=== PATIENT | male | born 1960 | race Caucasian/White ===

== ENCOUNTER 2017-03-29 06:30 | Inpatient (IN) | payer OTHER ==
[~2017-03-29] VITALS: Ht 175.3 cm; Wt 85.6 kg
[~2017-03-29 06:30] MED LIST: AUGMENTIN875 MG PO; MOTRIN600 MG PO; NON
[2017-03-29 07:10] LABS: BASOPHIL COUNT 0.1 K/uL (0-0.1); EOSINOPHIL (%) 2.7 % (0-5); EOSINOPHIL COUNT 0.3 K/uL (0-0.3); HEMATOCRIT 44.6 % (38.0-50.0); IMMATURE GRANULOCYTE (%) 0.3 % (0.0-0.7); INSTRUMENT ABS NEUTROPHIL CT 6.7 K/uL; LYMPHOCYTE COUNT 1.9 K/uL (1.0-2.8); MCHC 34.1 G/DL (30.0-36.0); MEAN PLAT.VOLUME 9.1 uM^3 (9.0-12.4); MONOCYTE (%) 6.5 % (3-12); MONOCYTE COUNT 0.6 K/uL (0-0.8); NEUTROPHIL (%) 70.4 % (45-76); NEUTROPHIL COUNT 6.7 K/uL (1.8-6.4); PLATELET COUNT 216 K/uL (156-360); RBC DIS.WIDTH-CV 12.8 % (11.8-14.6); RBC DIS.WIDTH-SD 45.9 % (39-53); WHITE BLOOD COUNT 9.5 K/uL (4.1-10.2)
[2017-03-29 07:18] LABS: PTT 32.5 SEC (25-37)
[2017-03-29 07:36] LABS: ANION GAP 7 MEQ/L (2-14); CHLORIDE 106 MEQ/L (99-109); POTASSIUM 3.9 MEQ/L (3.7-5.4); SAMPLE HEMOLYSIS CHECK 0; SAMPLE ICTERIC CHECK 0; SAMPLE LIPEMIA CHECK 0; SODIUM 141 MEQ/L (136-147)
[2017-03-29 07:41] LABS: GFR ESTIMATE (CALCULATED) > 59 mL/min/; GLUCOSE 122 mg/dL (70-99); UREA NITROGEN (BUN) 10 mg/dL (9-23)
[2017-03-29 07:45] LABS: TROP-I INTERPRETATION NEGATIVE; TROPONIN-I 0.01 ng/mL (0.0-0.30)
[2017-03-29 11:00] VITALS: BP 140/99
[2017-03-29 15:09] LABS: TROP-I INTERPRETATION NEGATIVE; TROPONIN-I 0.02 ng/mL (0.0-0.30)
[2017-03-29 15:17] VITALS: BP 125/80
[2017-03-29 20:38] VITALS: BP 110/73
[2017-03-29 21:27] LABS: TROP-I INTERPRETATION NEGATIVE; TROPONIN-I 0.03 ng/mL (0.0-0.30)
[2017-03-30] VITALS (7 sets, daily range): BP systolic 114–136; BP diastolic 68–83
[2017-03-30 05:14] LABS: HEMATOCRIT 40.6 % (38.0-50.0); MCH 33.2 PG (29.0-34.0); MCV 97.6 FL (86-99); MEAN PLAT.VOLUME 9.2 uM^3 (9.0-12.4); PLATELET COUNT 182 K/uL (156-360); RBC DIS.WIDTH-SD 46.1 % (39-53); RED BLOOD COUNT 4.16 M/uL (4.00-5.50); WHITE BLOOD COUNT 7.6 K/uL (4.1-10.2)
[2017-03-30 05:30] LABS: TROP-I INTERPRETATION NEGATIVE; TROPONIN-I 0.03 ng/mL (0.0-0.30)
[2017-03-30 05:44] LABS: ALKALINE PHOSPHATASE 58 IU/L (3-129); ANION GAP 8 MEQ/L (2-14); CHLORIDE 104 MEQ/L (99-109); GFR ESTIMATE (CALCULATED) > 59 mL/min/; POTASSIUM 3.3 MEQ/L (3.7-5.4); SAMPLE HEMOLYSIS CHECK 0; SAMPLE ICTERIC CHECK 0; SAMPLE LIPEMIA CHECK 0; SODIUM 139 MEQ/L (136-147); TOTAL BILIRUBIN 1.6 MG/DL (0.0-1.0); UREA NITROGEN (BUN) 11 mg/dL (9-23)
[2017-03-30 05:45] LABS: GLUCOSE 91 mg/dL (70-99)
[2017-03-30 11:19] LABS: TROP-I INTERPRETATION NEGATIVE; TROPONIN-I < 0.01 ng/mL (0.0-0.30)
[2017-03-30 11:31] LABS: CREATINE KINASE 44 IU/L (1-294); TOTAL CK 44 IU/L (1-294)
[2017-03-30 12:48] LABS: CK-MB 0.4 ng/mL (0.0-4.9)
[2017-03-31 03:51] VITALS: BP 123/78
[2017-03-31 08:28] VITALS: BP 120/73
[2017-03-31 11:40] VITALS: BP 121/75
== END 2017-03-31 13:25 | disposition left against medical advice (07) | DRG 316 ==
LOC: EME 06:30 → EDOF 09:30 → 4EAST 09:30 → ENRESERV 09:32 → 4EAST 10:55
PROVIDERS: Emergency Medicine; Internal Medicine
DX: I30.9 Acute pericarditis, unspecified (principal); I50.9 Heart failure, unspecified; I11.0 Hypertensive heart disease with heart failure; R94.31 Abnormal electrocardiogram [ECG] [EKG]; F17.210 Nicotine dependence, cigarettes, uncomplicated; M25.519 Pain in unspecified shoulder; R07.89 Other chest pain
CPT/HCPCS: 71010; 71020; 71275; 80048; 80053; 82550 91; 82553; 83735; 83880; 84484; 85025; 85027; 85610; 85730; 93005; 93306; 99281; 99284; J1650; J1940; J2270; J3010; J7030